=== PATIENT | male | born 1980 | race Caucasian/White ===

== ENCOUNTER 2017-07-17 09:24 | Emergency (ER) | payer BC, OTHER ==
[~2017-07-17] VITALS: Ht 193 cm; Wt 103.7 kg
[~2017-07-17 09:24] MED LIST: CEPH500C PO
[2017-07-17 09:27] VITALS: TEMP 36.7; Ht 193 cm; Wt 103.7 kg
[2017-07-17] MEDS ORDERED: KETOROLAC TROMETHAMINE 60 MG/2 ML VIAL IM STA (09:52)
--- NOTE | 2017-07-17 11:06 | DIAGNOSTIC IMAGING REPORT ---
CT SCAN OF LUMBAR SPINE WITHOUT IV CONTRAST CLINICAL HISTORY: Chronic low back pain. COMPARISON STUDY: No priors. TECHNIQUE: CT scan of the lumbar spine is performed from the lower thoracic spine to the sacrum. Images are reviewed in the axial, sagittal, and coronal planes. IV contrast was not administered for this examination. A dose lowering technique was utilized adhering to the principles of ALARA. CT DOSE: 648.61 mGy.cm FINDINGS: The skeletal structures are well mineralized. There is no evidence of fracture or malalignment. Vertebral body height and alignment are maintained throughout the lumbar spine. There is mild straightening of the lumbar lordosis. The transverse and spinous processes appear intact. No lytic or blastic lesion is seen. There is no evidence of spondylolysis. There is advanced degenerative disc space narrowing at L5-S1 with associated endplate sclerosis. The disc spaces are otherwise preserved. There is a small posterior disc bulge at L4-L5. There is calcification posterior to the L5 vertebral body. This likely represents a calcified disc fragment. There is no significant acquired compromise of the central canal. The visualized sacrum and bony pelvis appear intact. The paraspinous soft tissues are within normal limits. The partially imaged retroperitoneal structures are grossly unremarkable and incompletely assessed. IMPRESSION: 1. No acute bony abnormality is seen involving the lumbar spine. 2. An indeterminant calcified structure seen posterior to the L5 vertebral body and likely represents a calcified disc fragment. Calcification suggest this may be chronic. 3. There is no significant acquired compromise of the central canal. Dictated: 07/17/2017 10:48 AM Transcribed: 07/17/2017 11:06 AM [email or web address] Electronically signed by: Crow Quezada M.D. 07/17/2017 11:17 AM Dictated Date/Time: 07/17/2017 10:48 AM
[2017-07-17] MEDS ORDERED: KETO10TA PO (11:32)
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
[2017-07-17 11:51] VITALS: BP 148/76; PULSE 85; O2SAT 98
== END 2017-07-17 11:50 | disposition home or self-care (01) ==
LOC: C.EDB 09:26
DX: M54.5 Low back pain (principal)